=== PATIENT | male | born 1990 | race Caucasian/White ===

== ENCOUNTER 2016-12-11 11:37 | Emergency (ER) | payer OTHER ==
[2016-12-11] MEDS ORDERED: Cyclobenzaprine TAB* 10 MG PO ONE (13:25)
[2016-12-11] MEDS ORDERED: Ketorolac INJ* 60 MG/2 ML VIAL IM ONE (13:25)
--- NOTE | 2016-12-11 14:01 | RAD ---
INDICATION: Low back pain COMPARISON: None. TECHNIQUE: 3 views of the lumbar spine were obtained. FINDINGS: The vertebra are in normal alignment. No fracture is seen. Disc spaces appear maintained. . IMPRESSION: No evidence of fracture or subluxation.
[2016-12-11 14:26] VITALS: BP 160/98
--- NOTE | 2016-12-11 16:06 | ED ---
Back Pain - HPI Summary HPI Summary: Patient arrives with CC of lower back pain. He states he is very active and completed a long hike yesterday. Today he states he is unable to bend over or twist. States pain is 10/10 and does not radiate. No numbness or tingling. Denies bladder or bowel dysfunction. - History of Current Complaint Chief Complaint: EDBackInjuryPain Stated Complaint: BACK INJURY Time Seen by Provider: 12/11/16 12:40 Hx Obtained From: Patient Onset/Duration: Sudden Onset Onset/Duration: Started Hours Ago Timing: Constant Back Pain Location: Is Discrete @ - midline lower back Pain Intensity: 6 Pain Scale Used: 0-10 Numeric Character: Sharp, Aching Aggravating Symptom(s): Movement, Bending Alleviating Symptom(s): Position - standing Associated Signs And Symptoms: Positive: Negative - Risk Factors AAA Risk Factors: Negative TAD Risk Factors: Negative Cauda Equina Risk Factors: Negative Epidural Abscess Risk Factors: Negative - Allergies/Home Medications Allergies/Adverse Reactions: Allergies Allergy/AdvReac Type Severity Reaction Status Date / Time No Known Allergies Allergy Verified 12/11/16 12:32 Home Medications: Home Medications Ibuprofen TAB* [Motrin TAB* 600 MG] 600 mg PO Q6H PRN 12/11/16 [History Confirmed 12/11/16] PMH/Surg Hx/FS Hx/Imm Hx Previously Healthy: Yes Neurological History: Denies: Other Neuro Impairments/Disorders - Cancer History Hx Palliative Cancer Treatment: No - Surgical History Hx Anesthesia Reactions: No Infectious Disease History: No Infectious Disease History: Denies: Traveled Outside the [place] in Last 30 Days - Family History Known Family History: Positive: Cardiac Disease, Hypertension, Diabetes - Social History Occupation: Employed Full-time Lives: With Family Alcohol Use: Daily Alcohol Amount: 2 beers a day Hx Substance Use: No Substance Use Type: Reports: Marijuana Hx Tobacco Use: No Smoking Status (MU): Never Smoked Tobacco Do You Chew or Dip Tobacco: No Have You Chewed or Dipped Tobacco in the LAST YEAR: No Review of Systems Constitutional: Negative Eyes: Negative Cardiovascular: Negative Respiratory: Negative Genitourinary: Negative Positive: no symptoms reported, see HPI Positive: Arthralgia, Myalgia, Decreased ROM - midline lower back pain Skin: Negative Neurological: Negative All Other Systems Reviewed And Are Negative: Yes Physical Exam Triage Information Reviewed: Yes Vital Signs On Initial Exam: Initial Vitals Temp Pulse Resp BP Pulse Ox 99.1 F 84 17 149/85 100 12/11/16 11:42 12/11/16 11:42 12/11/16 11:42 12/11/16 11:42 12/11/16 11:42 Vital Signs Reviewed: Yes Appearance: Positive: Well-Appearing, No Pain Distress, Well-Nourished Skin: Positive: Warm, Skin Color Reflects Adequate Perfusion Eyes: Positive: Normal, EOMI, Conjunctiva Clear Respiratory/Lung Sounds: Positive: Clear to Auscultation, Breath Sounds Present Cardiovascular: Positive: Normal Musculoskeletal: Positive: Limited @ - due to pain. unable to flex or extend at the hips. unable to twist. Neurological: Positive: Normal, Sensory/Motor Intact, Alert, Oriented to Person Place, Time, Abnormal Gait - d/t pain, Speech Normal Psychiatric: Positive: Normal, Affect/Mood Appropriate AVPU Assessment: Alert Diagnostics - Vital Signs Vital Signs Temp Pulse Resp BP Pulse Ox 12/11/16 14:21 98.3 F 72 16 160/98 12/11/16 11:42 99.1 F 84 17 149/85 100 - Laboratory Lab Statement: Any lab studies that have been ordered have been reviewed, and results considered in the medical decision making process. - Radiology No standard instances Xray Interpretation: No Acute Changes Radiology Interpretation Completed By: Radiologist - lumbar xray normal Back Pain Course/Dx - Course Course Of Treatment: lumbar xray read as no acute changes. Patient given flexiril, back exercises and encouraged ibuprofen as needed and ambulation as tolerated. patient agrees with plan and will follow up. - Diagnoses Differential Diagnosis/HQI/PQRI: Positive: Cauda Equina Syndrome, Compressive Cord Syndrome, Herniated Disc, Strain, Sprain Provider Diagnoses: Back strain Discharge - Discharge Plan Condition: Stable Disposition: HOME Prescriptions: Cyclobenzaprine TAB* [Flexeril TAB*] 10 mg PO BID PRN #10 tab MDD 2 PRN Reason: Pain Patient Education Materials: Low Back Strain (ED) Referrals: [facility] FRANCOIS Varma [Primary Care Provider] - Additional Instructions: Dx. Muscle Strain Flexeril: This medication is a muscle relaxant and can help relieve muscle spasms, muscle strain, or pain sensations. Flexeril can cause side effects that may impair your thinking or reactions. Be careful if you drive or do anything that requires you to be awake and alert. Avoid drinking alcohol, which can increase some of the side effects of Flexeril. Ibuprofen 600mg three times daily with meals as needed for pain and inflammation. Heating pad to the area (preferably moist heat) several times per day until discomfort has subsided.
== END 2016-12-11 14:21 | disposition home or self-care (01) ==
LOC: ED 11:37
DX: S29.012A Strain of muscle and tendon of back wall of thorax, initial encounter (principal); M54.5 Low back pain; X58.XXXA Exposure to other specified factors, initial encounter; Y93.9 Activity, unspecified; Y92.9 Unspecified place or not applicable; Y99.9 Unspecified external cause status
CPT/HCPCS: 72100; 96372; 99282; A9270-GY; J1885

== ENCOUNTER 2017-03-05 00:56 | Emergency (ER) | payer OTHER ==
[2017-03-05 02:16] VITALS: BP 169/103
[2017-03-05] MEDS ORDERED: Ketorolac INJ* 60 MG/2 ML VIAL IM ONE (02:40)
[2017-03-05] MEDS ORDERED: HYDROcodone/ACETAMIN 5-325 MG* 1 TAB PO ONE (02:44)
--- NOTE | 2017-03-05 11:16 | RAD ---
INDICATION: Pain over the left fifth metacarpal after hitting a wall COMPARISON: None. TECHNIQUE: 4 views of the left hand were obtained. FINDINGS: There is a minimally displaced fracture involving the ulnar proximal head of the left middle finger phalanx. There appears to be a slightly displaced fracture involving the ulnar aspect of the hamate bone. Remaining visualized bones appear to be intact and appropriately aligned. IMPRESSION: Fractures are identified at the proximal left middle finger metacarpal and the ulnar aspect of the hamate bone.
--- NOTE | 2017-03-05 20:03 | ED ---
Upper Extremity Pain - HPI Summary HPI Summary: Patient presents to ED 1 hour after punching a wall. He states he was angry and punched it with his right hand then his left. Denies pain in his left hand , but endorses 10/10 pain in the right hand with an obvious deformity over the left ulnar side of the wrist. Mild ecchymosis. Denies other pain. He denies numbness, tingling, or temperature changes. Pulses intact +2 bilaterally. Denies previous injury to the area. Not on blood thinners. - History of Current Complaint Chief Complaint: EDExtremityUpper Stated Complaint: LT HAND INJURY Time Seen by Provider: 03/05/17 02:04 Hx Obtained From: Patient Mechanism Of Injury: Direct Blow Onset/Duration: Started Hours Ago Timing: Constant Severity Initially: Moderate Severity Currently: Moderate Pain Location: Hand Character: Aching, Throbbing Aggravating Factor(s): Lifting, Internal/External Rotation, Abduction Alleviating Factor(s): Rest, Ice Associated Signs & Symptoms: Positive: Swelling, Redness, Bruising Related History: Dominant Hand Right - Risk Factors Non-Orthopedic Risk Factor: Negative DVT Risk Factors: Negative Septic Arthritis Risk Factor: Negative Compartment Syndrome Risk Factors: Pain - Allergies/Home Medications Allergies/Adverse Reactions: Allergies Allergy/AdvReac Type Severity Reaction Status Date / Time No Known Allergies Allergy Verified 12/11/16 12:32 PMH/Surg Hx/FS Hx/Imm Hx Previously Healthy: Yes Neurological History: Denies: Other Neuro Impairments/Disorders - Cancer History Hx Palliative Cancer Treatment: No - Surgical History Hx Anesthesia Reactions: No - Immunization History Hx Pertussis Vaccination: No Immunizations Up to Date: Yes Infectious Disease History: No Infectious Disease History: Denies: Traveled Outside the [place] in Last 30 Days - Family History Known Family History: Positive: Cardiac Disease, Hypertension, Diabetes - Social History Occupation: Employed Full-time Lives: With Family Alcohol Use: Daily Alcohol Amount: 2 beers a day Hx Substance Use: No Substance Use Type: Reports: Marijuana Hx Tobacco Use: No Smoking Status (MU): Never Smoked Tobacco Review of Systems Constitutional: Negative Eyes: Negative Cardiovascular: Negative Respiratory: Negative Positive: no symptoms reported, see HPI Positive: Arthralgia Skin: Negative Psychological: Normal All Other Systems Reviewed And Are Negative: Yes Physical Exam Triage Information Reviewed: Yes Vital Signs On Initial Exam: Initial Vitals Temp Pulse Resp BP Pulse Ox 98 F 109 18 145/99 97 03/05/17 00:59 03/05/17 00:59 03/05/17 00:59 03/05/17 00:59 03/05/17 00:59 Vital Signs Reviewed: Yes Appearance: Positive: Well-Appearing, Well-Nourished Skin: Positive: Warm, Skin Color Reflects Adequate Perfusion Eyes: Positive: Normal, JOSE ARMANDO ENT: Positive: Normal ENT inspection, Hearing grossly normal Neck: Positive: Supple, No Lymphadenopathy Respiratory/Lung Sounds: Positive: Clear to Auscultation, Breath Sounds Present Cardiovascular: Positive: Normal, RRR, Pulses are Symmetrical in both Upper and Lower Extremities Musculoskeletal: Positive: Limited @ - flexion and extensin of wrist, rotation of wrist, Pain @ Neurological: Positive: Sensory/Motor Intact, Alert, Oriented to Person Place, Time Psychiatric: Positive: Normal AVPU Assessment: Alert Procedures - Splinting Hand-Made Type: fiberglass Splint: volar Pre-Proc Neuro Vasc Exam: normal Post-Proc Neuro Vasc Exam: normal Diagnostics - Vital Signs Vital Signs Temp Pulse Resp BP Pulse Ox 03/05/17 02:08 98.9 F 95 18 169/103 95 03/05/17 00:59 98 F 109 18 145/99 97 - Laboratory Lab Statement: Any lab studies that have been ordered have been reviewed, and results considered in the medical decision making process. Course/Dx - Course Course Of Treatment: FINDINGS: There is a minimally displaced fracture involving the ulnar proximal head of the left. middle finger phalanx. There appears to be a slightly displaced fracture involving the. ulnar aspect of the hamate bone. Remaining visualized bones appear to be intact and. appropriately aligned. IMPRESSION: Fractures are identified at the proximal left middle finger metacarpal and. the ulnar aspect of the hamate bone. Placed volar splint over L hand. Patient tolerated well. NV exam WNL. Will follow up with Dr. Montes next week. Pain medication given. Encouraged ibuprofen and ice. - Diagnoses Differential Diagnosis/HQI/PQRI: Positive: Contusion, Strain, Sprain Provider Diagnoses: Closed nondisplaced fracture of middle phalanx of finger Discharge - Discharge Plan Condition: Stable Disposition: HOME Prescriptions: Hydrocodone-Acetaminophen [Hydrocodone/Acetaminophen 10-325 mg] 1 tab PO TID PRN #12 tab MDD 3 PRN Reason: Pain Hydrocodone-Acetaminophen [Hydrocodone/Acetaminophen 10-325 mg] 1 tab PO QID PRN #12 tab MDD 4 PRN Reason: Pain Patient Education Materials: Hand Fracture (ED) Referrals: [facility] [Primary Care Provider] - Mike Montes MD [Medical Doctor] - Ada Torres MD [Medical Doctor] - Additional Instructions: Follow up with DR. Torres or Dr. Montes. Continue with splint until follow up Do not get wet Ibuprofen 600mg three times daily on off schedule from oxycodone. Ice to the hand x 2 days intermittently 20minutes at a time
== END 2017-03-05 03:19 | disposition home or self-care (01) ==
LOC: ED 00:56
DX: S62.613A Displaced fracture of proximal phalanx of left middle finger, initial encounter for closed fracture (principal); W22.8XXA Striking against or struck by other objects, initial encounter; Y92.9 Unspecified place or not applicable
CPT/HCPCS: 29130; 99282

== ENCOUNTER 2017-03-10 08:50 | Day surgery (SDC) | payer OTHER ==
--- NOTE | 2017-03-08 17:47 | HP ---
HISTORY AND PHYSICAL: DATE OF ADMISSION: 03/10/17 DATE OF OFFICE VISIT: 03/08/17 ATTENDING SURGEON: Dr. Ada Torres. PROCEDURE: Left ring and small metacarpal closed reduction pinning. CHIEF COMPLAINT: Left hand pain. 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 He was seen in the emergency room and had x-rays which showed fracture dislocations of fourth and fifth carpometacarpal joints. He rates his pain 6/10 to 10/10 depending on what he does. He has been wearing a splint. He has been taking hydrocodone. He denies any numbness or tingling. He denies any other injuries. PAST MEDICAL HISTORY: None. PAST SURGICAL HISTORY: 1. Pyloric stenosis repaired in 1987. 2. Hernia repair, 2005. 3. Closed reduction, right ankle, under anesthesia. MEDICATIONS: Hydrocodone/acetaminophen 5/325 mg 1 to 2 tabs by mouth every 4 to 6 hours as needed for pain. ALLERGIES: No known drug allergies. FAMILY MEDICAL HISTORY: Mother alive and well with history of colon cancer and high blood pressure. Father alive and well, history of alcoholism. SOCIAL HISTORY: Currently working as a grad student. The patient has never smoked. Drinks alcohol occasionally. REVIEW OF SYSTEMS: General: Negative for fevers, chills, night sweats, or anesthesia problems. HEENT: Negative for headache, lightheadedness, or syncopal episodes. Integumentary: Negative for lesions. He does have an open wound with a scratch on his nose and an abrasion on the dorsal aspect of his right hand. Cardiothoracic: Negative for hypertension, chest pain, palpitations , or edema. Pulmonary: Negative for shortness of breath with exertion, chronic cough, or COPD. GI: Negative for nausea, vomiting, diarrhea, constipation, or gastroesophageal reflux disease. : Negative for nocturia, urinary frequency , urinary urgency, history of UTIs, or kidney problems. Musculoskeletal: As above. Neuro: Negative for paresthesias, numbness, history of seizures, stroke , or epilepsy. Endocrine: Negative for diabetes or thyroid issues. Hematological: Negative for easy bruising, anemia, excessive bleeding, or history of DVT. Infectious Disease: Negative for history of MRSA, hepatitis C, or HIV. PHYSICAL EXAMINATION GENERAL: He is a healthy-appearing pleasant male in minimal distress at rest. He is alert and oriented x3. He has no obvious neurological defects. VITAL SIGNS: Pain is 6/10, height 72 inches, weight 215 pounds, pulse is 80, blood pressure is 118/68, respirations 16, temperature is 97.6 with a BMI of 29.3. HEENT: Normocephalic, nontender. Eyes: PERRLA. Extraocular movements intact. NECK: Supple. No palpable lymph nodes. Throat clear. PULMONARY: Lungs clear to auscultation bilaterally with no wheezing. CARDIO: Regular rate and rhythm. S1, S2. No murmurs, rubs, or gallops. No edema. ABDOMEN: Positive bowel sounds throughout. Soft, nontender. NEUROLOGICAL: Alert and oriented x3. Cranial nerves II through XII intact. Sensation intact to light touch. PERIPHERAL VASCULAR: 2+ radial pulses. MUSCULOSKELETAL: He has moderate swelling and ecchymosis. He has limited motion of the left hand and neurovascular distally is intact. STUDIES: X-rays taken in the emergency room showed fracture of the hamate of the left hand and base of the fourth metacarpal with dislocations of both the fourth and fifth carpometacarpal joints. IMPRESSION: Displaced fractured body of the hamate with dislocation of the fourth and fifth carpometacarpal joints. PLAN: The patient is scheduled to undergo a left ring and small metacarpal closed reduction and pinning. He will return to the office 10 to 14 days postop for followup and suture removal. He does have hydrocodone that he has been taking from the emergency room. We will reassess his postop pain management postoperatively. EVER Bowens [id number]/[facility] #: [id number] [facility] CENTERZayra
[~2017-03-10 08:50] MED LIST: Buffered Lidocaine 1% SYR 3ML* 3 ML/SYR SYRINGE INTRADERM ONE; Dexamethasone IV* 4 MG/ML 1 ML (4 MG) IV SLOW PU ONE; Dexamethasone IV* 4 MG/ML 1 ML (4 MG) ONE; DiMENhydriNATE IV* 50 MG/ML VIAL IV PUSH PRN; Famotidine IV* 10 MG/ML 2 ML (20 mg) IV ONE; Famotidine IV* 10 MG/ML 2 ML (20 mg) ONE; Ondansetron INJ* 2 MG/ML VIAL IV PRN; PROCHLORPERAZINE INJ 5 MG/ML 2 ML VIAL IV PRN
[2017-03-10] MEDS ORDERED: ceFAZolin 2 GM PREMIX(*) 2 GM/50 ML BAG IVPB ONE (09:22)
[2017-03-10] MEDS ORDERED: fentaNYL* 50 MCG/ML 2 ML VIAL (100 MCG VIAL) ONE ×3 (09:42→12:35)
[2017-03-10] MEDS ORDERED: Midazolam* 1 MG/ML 2 ML VIAL (2 MG) ONE (09:43)
[2017-03-10] MEDS ORDERED: Scopolamine 1.5 mg* PATCH ONE (09:53)
[2017-03-10] MEDS ORDERED: Lidocaine 1% INJ* 10 MG/ML 30 ML SDV ONE (10:31)
[2017-03-10] MEDS ORDERED: Bupivacaine 0.5% SDV PF* 30 ML VIAL ONE (10:31)
[2017-03-10] MEDS ORDERED: HYDROmorphone* 1 MG/ML 1 ML SYR ONE ×2 (10:53→11:47)
[2017-03-10] MEDS ORDERED: Lidocaine 2% PF * 5 ML VIAL ONE (10:53)
[2017-03-10] MEDS ORDERED: Ketorolac INJ* 30 MG/ML 1 ML VIAL ONE (10:53)
[2017-03-10] MEDS ORDERED: Meperidine SYRINGE* 50 MG/ML ONE (10:53)
[2017-03-10] MEDS ORDERED: Propofol* 10 MG/ML 20 ML BTL IV PUSH ONE (10:53)
[2017-03-10] MEDS ORDERED: Ondansetron INJ* 2 MG/ML VIAL ONE (10:53)
[2017-03-10] MEDS: fentaNYL* 50 MCG/ML 2 ML VIAL (100 MCG VIAL) IV PRN ×4 (12:20→12:48)
[2017-03-10] MEDS ORDERED: HYDROcodone/ACETAMIN 5-325 MG* 1 TAB ONE (12:24)
[2017-03-10 13:03] VITALS: BP 125/62
--- NOTE | 2017-03-10 15:19 | RAD ---
INDICATION: Left hand deformity of fracture COMPARISONS: March 05, 2017 TECHNIQUE: Fluoroscopy was provided for a surgical procedure. Total fluoroscopy time is: 10 minutes, 39 seconds FINDINGS: Spot images demonstrate percutaneous fixation of the carpus and the proximal fourth and fifth metacarpals IMPRESSION: FLUOROSCOPY WAS PROVIDED FOR A SURGICAL PROCEDURE CPT II Codes: 6045F
--- NOTE | 2017-03-10 23:45 | OP ---
DATE OF OPERATION: 03/10/17 [facility] DATE OF : 86 SURGEON: Ada Torres MD REPTILE KEEPER: EVER Lucero ANESTHESIOLOGIST: Vinnie Regalado MD ANESTHESIA: General. PRE-OP DIAGNOSIS: Left ring small finger carpometacarpal dislocation and fracture. POST-OP DIAGNOSIS: Left ring small finger carpometacarpal dislocation and fracture. OPERATIVE PROCEDURE: Closed reduction and pinning, left ring and small finger carpometacarpal joint. ESTIMATED BLOOD LOSS: Zero. INDICATION FOR PROCEDURE: Clarence is a 26-year-old male who injured his left hand when he punched the wall. He has had the fracture dislocation of his carpometacarpal joints of the ring and small fingers. He presents for closed reduction and pinning. DESCRIPTION OF PROCEDURE: The patient was brought to the operating room, was given a general anesthetic, and placed in the supine position on the operating table with the tourniquet around his left upper arm, the tourniquet was not used during the procedure. Skin of his left upper extremity was prepped and draped in the usual sterile fashion. The fractures were reduced with longitudinal traction and then 0.045 inch K-wires were driven through the base of the fourth and fifth metacarpals into the carpal bones. There was a dorsal fragment of the hamate that was also reduced and secured with a 0.045 inch K- wire. The position of the hardware and fracture fragments were checked on the C -arm in the AP and lateral views and found to be satisfactory. The pins were bent and cut and dressed with Xeroform, 4x4, Webril, and a volar splint. The patient tolerated the procedure well and was brought to the recovery room in good condition. [id number]/[facility] #: [id number] MTDD
== END 2017-03-10 13:34 | disposition home or self-care (01) ==
LOC: OREAST 08:50
PROVIDERS: ATTEND Orthopaedic Surgery
DX: S62.142A Displaced fracture of body of hamate [unciform] bone, left wrist, initial encounter for closed fracture (principal); S63.055A Dislocation of other carpometacarpal joint of left hand, initial encounter; W22.09XA Striking against other stationary object, initial encounter; Y92.9 Unspecified place or not applicable
CPT/HCPCS: 76000; A9270-GY; C1776; J0690; J1100; J1170; J1885; J2001; J2250; J2405; J2704; J3010

== ENCOUNTER 2017-12-12 13:59 | Emergency (ER) | payer OTHER ==
--- NOTE | 2017-12-12 15:58 | RAD ---
HISTORY: Left lower leg pain COMPARISONS: None VIEWS: 7, Frontal, lateral, and oblique views of the left ankle with frontal and lateral views of the left foreleg FINDINGS: BONE DENSITY: Normal. BONES: There is no displaced fracture. There is a well-corticated bone fragment off the distal fibula. There is no appreciable erosion or periosteal reaction. JOINTS: There is no arthropathy. ALIGNMENT: There is no dislocation. SOFT TISSUES: Unremarkable. OTHER FINDINGS: None. IMPRESSION: 1. WELL-CORTICATED BONE FRAGMENT OFF THE DISTAL FIBULA WHICH MAY REFER TO RETROPULSION INJURY VERSUS UNUNITED OSSICLE. 2. NO APPRECIABLE EROSION OR PERIOSTEAL REACTION. 3. NO ACUTE OSSEOUS INJURY OF THE LEFT ANKLE OR FORELEG. IF SYMPTOMS PERSIST, RECOMMEND REPEAT IMAGING
--- NOTE | 2017-12-12 15:59 | RAD ---
HISTORY: Left knee pain COMPARISONS: August 03, 2016 VIEWS: 4, Frontal, lateral, axial, and oblique views of the left knee FINDINGS: BONE DENSITY: Normal. BONES: There is no displaced fracture. JOINTS: There is no arthropathy. There is no suprapatellar joint effusion or lipohemarthrosis. ALIGNMENT: There is no dislocation. SOFT TISSUES: Unremarkable. OTHER FINDINGS: None. IMPRESSION: NO ACUTE OSSEOUS INJURY. IF SYMPTOMS PERSIST, RECOMMEND REPEAT IMAGING.
--- NOTE | 2017-12-12 16:34 | ED ---
Lower Extremity - HPI Summary HPI Summary: 27-year-old male presents with left ankle pain today. He states he slipped and twisted his left. He has not been able to ambulate. He is able to toe walk. He states he heard a pop. He denies any numbness or tingling. He has had a previous injuries to the area but no fractures. He hasn't taken anything for pain. He has been ambulating on crutches. He denies any other injury. - History of Current Complaint Chief Complaint: EDExtremityLower Stated Complaint: FALL LT LEG INJURY Time Seen by Provider: 12/12/17 16:29 Pain Intensity: 5 - Allergies/Home Medications Allergies/Adverse Reactions: Allergies Allergy/AdvReac Type Severity Reaction Status Date / Time No Known Allergies Allergy Verified 03/10/17 09:35 PMH/Surg Hx/FS Hx/Imm Hx Endocrine/Hematology History: Denies: Hx Anticoagulant Therapy Cardiovascular History: Denies: Hx Myocardial Infarction Musculoskeletal History: Reports: Other Musculoskeletal History - injury to left hand, ring and small finger Sensory History: Denies: Hx Contacts or Glasses, Hx Hearing Aid Opthamlomology History: Denies: Hx Contacts or Glasses Neurological History: Denies: Other Neuro Impairments/Disorders - Cancer History Hx Palliative Cancer Treatment: No - Surgical History Surgery Procedure, Year, and Place: pyloric stenosis surgery at 6 weeks old. has had anesthesia for several dislocations Hx Anesthesia Reactions: No Infectious Disease History: No Infectious Disease History: Denies: Traveled Outside the [place] in Last 30 Days - Family History Known Family History: Positive: Cardiac Disease, Hypertension, Diabetes - Social History Alcohol Use: Daily Alcohol Amount: 2-3 beers a day Hx Substance Use: No Substance Use Type: Reports: Marijuana Substance Use Comment - Amount & Last Used: 2x month Hx Tobacco Use: No Smoking Status (MU): Never Smoked Tobacco Review of Systems Negative: Fever Negative: Chest Pain Negative: Shortness Of Breath Positive: Myalgia - left ankle pain All Other Systems Reviewed And Are Negative: Yes Physical Exam Triage Information Reviewed: Yes Vital Signs On Initial Exam: Initial Vitals Temp Pulse Resp BP Pulse Ox 99.1 F 82 17 137/72 98 12/12/17 14:05 12/12/17 14:05 12/12/17 14:05 12/12/17 14:05 12/12/17 14:05 Vital Signs Reviewed: Yes Appearance: Positive: Well-Appearing Skin: Positive: Warm, Dry Head/Face: Positive: Normal Head/Face Inspection Eyes: Positive: Normal, Conjunctiva Clear Respiratory/Lung Sounds: Positive: Clear to Auscultation, Breath Sounds Present Cardiovascular: Positive: Normal, RRR Musculoskeletal: Positive: Limited @ - left ankle, Edema Left - lateral aspect of ankle, Other - good pulses, capillary refill<2 secs, tenderness over lateral aspect of left ankle, pos danilo squeeza\e Neurological: Positive: Normal Psychiatric: Positive: Normal Diagnostics - Vital Signs Vital Signs Temp Pulse Resp BP Pulse Ox 12/12/17 14:05 99.1 F 82 17 137/72 98 - Laboratory Lab Statement: Any lab studies that have been ordered have been reviewed, and results considered in the medical decision making process. - Radiology knee Xray Interpretation: No Acute Changes - IMPRESSION: 1. WELL-CORTICATED BONE FRAGMENT OFF THE DISTAL FIBULA WHICH MAY REFER TO RETROPULSION INJURY VERSUS UNUNITED OSSICLE. 2. NO APPRECIABLE EROSION OR PERIOSTEAL REACTION. 3. NO ACUTE OSSEOUS INJURY OF THE LEFT ANKLE OR FORELEG. IF SYMPTOMS PERSIST, RECOMMEND REPEAT IMAGING Radiology Interpretation Completed By: Radiologist Lower Extremity Course/Dx - Course Course Of Treatment: 27-year-old male presents with left ankle pain today. He states he slipped and twisted his left. He has not been able to ambulate. He is able to toe walk. He states he heard a pop. He denies any numbness or tingling. He has had a previous injuries to the area but no fractures. He hasn 't taken anything for pain. He has been ambulating on crutches. He denies any other injury. Neurovascular intact. Tenderness over lateral aspect of left ankle. Positive Ramos's squeeze. X-ray shows possible avulsion fracture. Will treat as sprain. Will treat with RICE. Patient understands and agrees to plan. - Diagnoses Differential Diagnosis/HQI/PQRI: Positive: Fracture (Closed), Sprain, Strain Provider Diagnoses: Left ankle injury Discharge - Discharge Plan Condition: Good Disposition: HOME Patient Education Materials: Ankle Sprain (ED) Referrals: [facility] - MRAnderson [Primary Care Provider] - Additional Instructions: Stay off ankle as much as possible Ice, elevate, keep in KWAME Ibuprofen every 6 hours for pain Follow up with primary if no improvement Return to ED if develop or any new or worsening symptoms
[2017-12-12 16:55] VITALS: BP 0/0
== END 2017-12-12 16:54 | disposition home or self-care (01) ==
LOC: ED 13:59
DX: S99.912A Unspecified injury of left ankle, initial encounter (principal); X50.1XXA Overexertion from prolonged static or awkward postures, initial encounter; Y93.9 Activity, unspecified; Y92.9 Unspecified place or not applicable; M25.562 Pain in left knee
CPT/HCPCS: 99282